=== PATIENT | female | born 1970 | race Caucasian/White ===

== ENCOUNTER 2018-05-02 00:25 | Emergency (ER) | payer BC ==
--- NOTE | 2018-05-02 00:28 | PDOC ---
History of Present Illness - General Chief Complaint: Injury Stated Complaint: TRIPPED AND FELL/LARGE GASH ON RIGHT ANKLE Time Seen by Provider: 05/02/18 00:28 - History of Present Illness Initial Comments: This otherwise healthy 47-year-old woman presents with laceration and abrasion to her right lower leg that she sustained just prior to presentation. Patient states that she tripped and fell while walking on [address], sustaining wounds of the lower leg. She denies head injury/neck injury. No loss of consciousness occurred and patient denies chest pain/shortness of breath/ abdominal pain or other extremity injury. The patient admits to drinking considerable amount of alcohol this evening but is able to ambulate without difficulty. She is accompanied by her boyfriend. She denies poor wound healing or colonization/infection with resistant organisms. She does not know when she last received tetanus prophylaxis immunization. Denies daily medication ALLERGIES: Patient describes severe rash to "Neosporin plus" prescribed by her [facility] consultant a few years ago. Lidocaine is listed as one of her ALLERGIES since it is a component of this medication. However, patient states that she has tolerated "Novocain" local anesthesia administered by her dentist as recently as 6 months ago without any ALLERGIC reaction or other side effect. Past History - Past Medical History Allergies/Adverse Reactions: Allergies Allergy/AdvReac Type Severity Reaction Status Date / Time bacitracin Allergy Verified 05/02/18 00:28 bacitracin zinc Allergy Verified 05/02/18 00:28 [From Neosporin Plus] lidocaine Allergy Verified 05/02/18 00:28 [From Neosporin Plus] neomycin sulfate Allergy Verified 05/02/18 00:28 [From Neosporin Plus] polymyxin B Allergy Verified 05/02/18 00:28 [From Neosporin Plus] polymyxin B sulfate Allergy Verified 05/02/18 00:28 [From Neosporin Plus] pramoxine Allergy Verified 05/02/18 00:28 [From Neosporin Plus] pramoxine HCl Allergy Verified 05/02/18 00:28 [From Neosporin Plus] Home Medications: Ambulatory Orders Cephalexin Monohydrate [Keflex -] 500 mg PO Q8H #15 capsule 05/02/18 - Suicide/Smoking/Psychosocial Hx Smoking Status: Yes Smoking History: Current every day smoker Have you smoked in the past 12 months: Yes Number of Cigarettes Smoked Daily: 20 'Breaking Loose' booklet given: 10/13/14 Hx Alcohol Use: No Substance Use Type: None Review of Systems - Review of Systems Able to Perform ROS?: Yes Comments:: 12 point review of systems is negative except for what is noted in the history of present illness *Physical Exam - Physical Exam Comments: GENERAL: Adult female, mildly intoxicated but alert and oriented 3; in no acute distress HEAD: Normal with no signs of trauma. EYES: PERRLA, EOMI, sclera anicteric, conjunctiva clear. ENT: Ears normal, nares patent, oropharynx clear without exudates. Dry mucous membranes. NECK: Normal range of motion, supple without lymphadenopathy, JVD, or masses. LUNGS: Breath sounds equal, clear to auscultation bilaterally. No wheezes, and no crackles. HEART:Regular rate and rhythm, normal S1 and S2 without murmur, rub or gallop. ABDOMEN:.normal bowel sounds No guarding,tenderness or rebound.No masses No distention. EXTREMITIES: Normal range of motion, no edema. No clubbing or cyanosis. No erythema, or tenderness. NEUROLOGICAL: Cranial nerves II through XII grossly intact. Normal speech. No focal neurological deficits. MUSCULOSKELETAL: Back non-tender to palpation, no CVA tenderness SKIN: Right lower extremity- 2 cm by 3 cm superficial abrasion just below the patella 8 cm curvilinear full-thickness flap- type laceration of the lateral distal third lower leg 1 cm nonbleeding superficial laceration distal to flap laceration No other significant abrasion/lacerations present Procedures - Laceration/Wound Repair Right Distal Leg Wound Length: 7.6 to 12.5 cm Wound Explored: foreign body removed Wound's Depth, Shape: flap Irrigated w/ Saline: Yes Betadine Prep: No (Hibiclens/ethanol) Anesthesia: 1% Lidocaine Amount of Anesthetic (ccs): 5 Wound Debrided: minimal Wound Repaired With: Sutures Suture Size/Type: 4:0 Layer Closure: No Sterile Dressing Applied: Yes Splint Applied: No Progress: Area of the wound in the distal right lower leg cleansed using Hibiclens/ ethanol and sterilely draped. Wound was anesthetized with 5 mL of 1% lidocaine. Wound was thoroughly irrigated with sterile normal saline:80 mL of irrigation solution used to clean wound of vegetation/soil debris. Wound edges sharply debrided back to briskly bleeding tissue. Wound closed with 13 interrupted sutures of 4-0 nylon. Sterile gauze dressing applied. Anterior knee abrasion cleansed using sterile saline and covered with sterile gauze Patient tolerated procedure well Progress Note - Progress Note Progress Note: As noted above, this otherwise healthy 47-year-old woman presents with flap- type laceration of the right lower leg. Closure of the laceration noted above. Because of the depth of the wound and contamination with debris, Keflex 500 mg administered with prescription sent for 500 mg Keflex 3 times a day for 5 days. Since the patient is ALLERGIC to Neosporin/bacitracin, no ointment applied to wound. Patient has been advised to keep the right lower leg elevated as much as possible over the next 2 days. She should follow-up with her doctor or return here for suture removal on May 11. Meanwhile, if the wound appears edematous/more erythematous or more painful, she should return here sooner or see her doctor. *DC/Admit/Observation/Transfer Diagnosis at time of Disposition: Abrasion of right knee Laceration of lower leg, right Qualifiers: Encounter type: initial encounter Qualified Code(s): S81.811A - Laceration without foreign body, right lower leg, initial encounter - Discharge Dispostion Disposition: HOME Condition at time of disposition: Stable - Prescriptions Prescriptions: Cephalexin Monohydrate [Keflex -] 500 mg PO Q8H #15 capsule - Referrals - Patient Instructions Printed Discharge Instructions: How to Care for a Laceration After Repair Additional Instructions: Keep right leg elevated as much as possible over the next 2 days Keep original dressing as dry as possible and intact for 3 days After 3 days, remove bandage and leave open, especially at night Can use a protective dressing (Band-Aid) during the day Keflex 500 mg 3 times a day for 5 days Return or see your doctor if area becomes red/swollen/painful Have sutures removed on May 11 - Post Discharge Activity
[2018-05-02 00:33] VITALS: BP 126/88; PULSE 96; TEMP 98.5; BMI 21.7
[2018-05-02] MEDS ORDERED: CEPHALEXIN MONOHYDRATE 500 MG CAPSULE (UD) ONE (01:34)
[2018-05-02] MEDS ORDERED: CEPHALEXIN MONOHYDRATE 500 MG CAPSULE (UD) PO ONE (01:38)
[2018-05-02] MEDS ORDERED: DIPHTH,PERTUSS(ACELL),TET 0.5 ML DISP.SYRIN IM ONE (01:39)
== END 2018-05-02 01:52 | disposition home or self-care (01) ==
LOC: FER 00:25
PROC: 0HQKXZZ Repair Right Lower Leg Skin, External Approach (ICD-10-PCS; principal; 2018-05-02)
PROC: 3E0234Z Introduction of Serum, Toxoid and Vaccine into Muscle, Percutaneous Approach (ICD-10-PCS; 2018-05-02)
DX: S81.811A Laceration without foreign body, right lower leg, initial encounter (principal); S80.811A Abrasion, right lower leg, initial encounter; W01.0XXA Fall on same level from slipping, tripping and stumbling without subsequent striking against object, initial encounter; Y93.01 Activity, walking, marching and hiking; Y92.89 Other specified places as the place of occurrence of the external cause
CPT/HCPCS: 90715; 99281-25

== ENCOUNTER 2018-05-03 14:43 | Emergency (ER) | payer BC ==
[2018-05-03 16:02] VITALS: BP 158/92; PULSE 92; TEMP 98.7; BMI 20.9
--- NOTE | 2018-05-03 16:24 | PDOC ---
History of Present Illness - General Chief Complaint: Revisit,Wound Recheck Stated Complaint: RIGHT LEG WOUND CHECK Time Seen by Provider: 05/03/18 14:51 History Source: Patient Exam Limitations: No Limitations - History of Present Illness Initial Comments: 05/03/18 16:38 47-year-old female no past medical history here today for repeat evaluation after sustaining a right leg laceration. [place] dark she sustained a laceration to her right calf from an unknown object. Patient has been taking Keflex since yesterday however today she noticed that was worsened with increased redness and swelling no fevers or chills the pain is improved overall she has been walking around the house a lot and has not been elevating the leg very much. No new numbness or tingling no other current complaints Past History - Past Medical History Allergies/Adverse Reactions: Allergies Allergy/AdvReac Type Severity Reaction Status Date / Time bacitracin Allergy Verified 05/02/18 00:28 bacitracin zinc Allergy Verified 05/02/18 00:28 [From Neosporin Plus] lidocaine Allergy Verified 05/02/18 00:28 [From Neosporin Plus] neomycin sulfate Allergy Verified 05/02/18 00:28 [From Neosporin Plus] polymyxin B Allergy Verified 05/02/18 00:28 [From Neosporin Plus] polymyxin B sulfate Allergy Verified 05/02/18 00:28 [From Neosporin Plus] pramoxine Allergy Verified 05/02/18 00:28 [From Neosporin Plus] pramoxine HCl Allergy Verified 05/02/18 00:28 [From Neosporin Plus] Home Medications: Ambulatory Orders Cephalexin Monohydrate [Keflex -] 500 mg PO Q8H #15 capsule 05/02/18 Amoxicillin/Potassium Clav [Augmentin 875-125 Tablet] 1 each PO ONCE #14 tablet MDD 2 05/03/18 COPD: No - Immunization History Immunization Up to Date: No - Suicide/Smoking/Psychosocial Hx Smoking Status: Yes Smoking History: Current every day smoker Have you smoked in the past 12 months: Yes Number of Cigarettes Smoked Daily: 20 'Breaking Loose' booklet given: 10/13/14 Hx Alcohol Use: No Drug/Substance Use Hx: No Substance Use Type: None Review of Systems - Review of Systems Constitutional: No: Chills, Diaphoresis HEENTM: No: Blurred Vision Respiratory: No: Cough, Orthopnea, Shortness of Breath Cardiac (ROS): No: Chest Pain Musculoskeletal: Yes: Muscle Pain. No: Back Pain, Gout, Neck Pain Integumentary: Yes: Change in Color. No: Rash, Sweating All Other Systems: Reviewed and Negative *Physical Exam - Physical Exam General Appearance: Yes: Appropriately Dressed Respiratory/Chest: positive: Lungs Clear, Normal Breath Sounds Cardiovascular: positive: Regular Rhythm, Regular Rate, S1, S2 Musculoskeletal: positive: Normal Inspection Extremity: positive: Normal Capillary Refill, Normal Range of Motion, Pedal Edema, Swelling, Erythema, Other (right lateral calf incision cdi. mild surrounding erythema, no crepitus. no drainage. distally n/v intact ) Integumentary: positive: Dry, Warm, Swelling (see right calf above) Neurologic: positive: Fully Oriented, Alert, Normal Mood/Affect ED Treatment Course - LABORATORY CBC & Chemistry Diagram: 05/03/18 16:20 05/03/18 16:20 - RADIOLOGY Radiology Studies Ordered: Category Date Time Status LEG TIB/FIB-RIGHT [RAD] Stat Radiology 05/03/18 15:03 Ordered Medical Decision Making - Medical Decision Making 05/03/18 16:40 47 yo f s/p deep laceration right calf, here with redness, increased swelling. on kelfex. plan xray r/o fb, iv abx, basic labs, plan to change to augmentin. 05/03/18 18:38 pt with wbc elevation. given dose iv abx unasyn. will dc home with repeat evaluation for wound check 24 - 48 hrs . outlined erythema with surgical marker. will change abx to augmentin. dc home. *DC/Admit/Observation/Transfer Diagnosis at time of Disposition: Wound cellulitis, Hyponatremia - Discharge Dispostion Disposition: HOME Condition at time of disposition: Improved - Prescriptions Prescriptions: Amoxicillin/Potassium Clav [Augmentin 875-125 Tablet] 1 each PO ONCE #14 tablet MDD 2 - Referrals Referrals: Matthew Corbin MD [Primary Care Provider] - - Patient Instructions Printed Discharge Instructions: How to Care for a Surgical Wound, DI for Wound Infection Additional Instructions: you should stop taking your keflex. you can start taking augmentin 875 mg twice daily. start tomorrow. return immediately for fever or chills. you need to have a repeat evaluation of your wound within 24 - 48 hrs. follow up with your primary doctor. if redness starts to go outside or lines, or fever come back immediately. you should wash leg with mild soap and water. - Post Discharge Activity
[2018-05-03] MEDS ORDERED: AMPICILLIN NA/SULBACTAM NA 1.5 GM VIAL ONE (16:33)
[2018-05-03] MEDS ORDERED: AMPICILLIN NA/SULBACTAM NA 1.5 GM in SODIUM CHLORIDE 100 ML IVPB ONE (16:33)
[2018-05-03 16:51] LABS: ALBUMIN 4.4 g/dl (3.5-5.0); ALK PHOS 60 U/L (32-92); ANION GAP 10 (8-16); BILIRUBIN,TOTAL 1.1 mg/dl (0.2-1.0); BLOOD UREA NITROGEN 9 mg/dl (7-18); CALCIUM 9.4 mg/dl (8.4-10.2); CHLORIDE 96 mmol/L (98-107); CO2 25 mmol/L (22-28); CREATININE 0.6 mg/dl (0.6-1.3); GLUCOSE,RANDOM 97 mg/dl (74-106); POTASSIUM 4.4 mmol/L (3.5-5.1); SGOT/AST 26 U/L (10-42); SGPT/ALT 15 U/L (10-40); SODIUM 131 mmol/L (136-145); TOT PROT 7.3 g/dl (6.4-8.3)
[2018-05-03 17:00] LABS: HEMATOCRIT 43.7 % (32.4-45.2); HEMOGLOBIN 14.6 GM/dl (10.7-15.3); MCH 31.2 pg (25.7-33.7); MCHC 33.3 g/dl (32.0-36.0); MEAN CELL VOLUME 93.6 fl (80-96); MEAN PLT VOLUME 8.1 fl (7.5-11.1); PLATELET COUNT 240 K/MM3 (134-434); RBC 4.67 M/mm3 (3.60-5.2); RDW 12.1 % (11.6-15.6); WHITE BLOOD COUNT 13.5 K/mm3 (4.0-10.8)
[2018-05-03] MEDS ORDERED: SODIUM CHLORIDE 0.9% 1000 ML INFUS.BAG IV ONE (17:54)
[2018-05-03 19:38] LABS: MACROCYTOSIS 1+; TEAR DROP CELLS 1+
[2018-05-03 19:40] LABS: PLATELET ESTIMATE ADEQUATE
== END 2018-05-03 19:47 | disposition home or self-care (01) ==
LOC: FER 14:43
PROC: 3E03329 Introduction of Other Anti-infective into Peripheral Vein, Percutaneous Approach (ICD-10-PCS; principal; 2018-05-03)
PROC: 3E0337Z Introduction of Electrolytic and Water Balance Substance into Peripheral Vein, Percutaneous Approach (ICD-10-PCS; 2018-05-03)
DX: S81.811D Laceration without foreign body, right lower leg, subsequent encounter (principal); L03.115 Cellulitis of right lower limb; W01.10XD Fall on same level from slipping, tripping and stumbling with subsequent striking against unspecified object, subsequent encounter; F17.210 Nicotine dependence, cigarettes, uncomplicated; E87.1 Hypo-osmolality and hyponatremia
CPT/HCPCS: 36415; 73590-TC-RT-FY; 80053; 83605; 85025; 99282-25; J7030

== ENCOUNTER 2021-11-11 00:35 | Emergency (ER) | payer SELFPAY ==
[2021-11-11 00:44] VITALS: BP 127/85; PULSE 77; TEMP 97.6; BMI 20.1
[2021-11-11] MEDS ORDERED: DIPHTH,PERTUSS(ACELL),TET 0.5 ML DISP.SYRIN IM ONE ×2 (00:52→00:56)
== END 2021-11-11 01:30 | disposition home or self-care (01) ==
LOC: FER 00:35
PROC: 3E0234Z Introduction of Serum, Toxoid and Vaccine into Muscle, Percutaneous Approach (ICD-10-PCS; principal; 2021-11-11)
DX: S00.91XA Abrasion of unspecified part of head, initial encounter (principal); S09.90XA Unspecified injury of head, initial encounter; W01.0XXA Fall on same level from slipping, tripping and stumbling without subsequent striking against object, initial encounter
CPT/HCPCS: 70450-TC; 72125-TC; 90715; 99284-25

== ENCOUNTER 2024-05-19 20:35 | Emergency (ER) | payer OTHER ==
[2024-05-19 20:43] VITALS: RESP 16; TEMP 98.1; BMI 20.1
[2024-05-19] MEDS ORDERED: cloNIDine HCL 0.1 MG TABLET ONE (21:01)
[2024-05-19 21:08] LABS: HEMATOCRIT 43.9 % (32.4-45.2); HEMOGLOBIN 14.4 G/dL (10.7-15.3); MCH 31.8 pg (25.7-33.7); MCHC 32.8 g/dl (32.0-36.0); MEAN CELL VOLUME 96.8 fl (80-96); MEAN PLT VOLUME 7.9 fl (7.5-11.1); PLATELET COUNT 230.6 10^3/uL (134-434); RBC 4.53 10^6/uL (3.60-5.2); RDW 13.7 % (11.6-15.6); WHITE BLOOD COUNT 10.4 10^3/uL (4.0-10.8)
[2024-05-19] MEDS: cloNIDine HCL 0.1 MG TABLET PO ONE (21:10)
[2024-05-19 21:32] LABS: ALBUMIN 4.5 g/dl (3.4-5.0); BILIRUBIN,TOTAL 0.5 mg/dl (0.2-1); CALCIUM 9.8 mg/dl (8.5-10.1); CREATININE 0.6 mg/dl (0.6-1.3); POTASSIUM 4.1 mmol/L (3.5-5.1); TOT PROT 6.9 g/dl (6.4-8.2)
[2024-05-19 21:51] VITALS: BP 151/89; PULSE 67
== END 2024-05-19 22:05 | disposition home or self-care (01) ==
LOC: FER 20:35
DX: I10 Essential (primary) hypertension (principal); F17.210 Nicotine dependence, cigarettes, uncomplicated
CPT/HCPCS: 36415; 80053; 85027; 99283-25